=== PATIENT | female | born 1975 | race Caucasian/White ===

== ENCOUNTER 2016-07-03 14:51 | Emergency (ER) | payer OTHER ==
[~2016-07-03] VITALS: Ht 167.6 cm; Wt 72.6 kg
[2016-07-03 14:53] VITALS: TEMP 36.8; Ht 167.6 cm; Wt 72.6 kg
[2016-07-03] MEDS ORDERED: ACETAMINOPHEN 500 MG TAB PO STA (15:10)
[2016-07-03] MEDS ORDERED: B-COTAB18 PO (15:29)
[2016-07-03] MEDS ORDERED: ASCO500C43 PO (15:29)
[2016-07-03] MEDS ORDERED: AZITTAB PO (15:29)
[2016-07-03] MEDS ORDERED: PHEN1MIS16 PO (15:29)
[2016-07-03] MEDS ORDERED: CALC600T9 PO (15:29)
[2016-07-03] MEDS ORDERED: MULT-513 PO (15:29)
[2016-07-03] MEDS ORDERED: SERT-234 PO (15:29)
--- NOTE | 2016-07-03 16:07 | DIAGNOSTIC IMAGING REPORT ---
LUMBAR SPINE 5 VIEWS CLINICAL HISTORY: Fall. Low back pain. FINDINGS: 5 views of the lumbar spine are obtained. No prior studies are available for comparison at the time of dictation. The skeletal structures are well mineralized. There is no radiographic evidence of fracture or malalignment. Vertebral body height and alignment are maintained. The transverse and spinous processes are intact. There is no evidence of spondylolysis. The intervertebral disc spaces are well-maintained. The visualized bony pelvis appears intact. There is a nonobstructed abdominal bowel gas pattern. There is moderate colonic fecal retention. Cholecystectomy clips are identified in the right upper quadrant. IMPRESSION: No acute bony abnormality is seen involving the lumbar spine. Electronically signed by: Francis Chicas M.D. 07/03/2016 4:06 PM Dictated Date/Time: 07/03/2016 4:05 PM
--- NOTE | 2016-07-03 16:08 | DIAGNOSTIC IMAGING REPORT ---
RIGHT WRIST 4 VIEWS CLINICAL HISTORY: Fall with right wrist injury. FINDINGS: 4 views of the right wrist are obtained. No prior studies are available for comparison at the time of dictation. The skeletal structures are well mineralized. No fracture is seen. The joint spaces of the wrist are well-maintained. The overlying soft tissues are within normal limits. IMPRESSION: Unremarkable radiographic assessment of the right wrist. Electronically signed by: Francis Chicas M.D. 07/03/2016 4:07 PM Dictated Date/Time: 07/03/2016 4:06 PM
--- NOTE | 2016-07-03 16:10 | DIAGNOSTIC IMAGING REPORT ---
SACRUM AND COCCYX 3 VIEWS CLINICAL HISTORY: Fall with tailbone pain. FINDINGS: 3 views of the sacrum and coccyx are obtained. No prior studies are available for comparison at the time of dictation. The skeletal structures are well mineralized. There is no radiographic evidence of sacral or coccygeal fracture. Minimal sclerotic degenerative change is noted in the sacroiliac joints. The remainder of the visualized bony pelvis appears intact. IMPRESSION: There is no radiographic evidence of sacral or coccygeal fracture. Electronically signed by: Francis Chicas M.D. 07/03/2016 4:09 PM Dictated Date/Time: 07/03/2016 4:07 PM
[2016-07-03] MEDS ORDERED: NORCO 5/325MG HOME PACK PO ONE (16:30)
[2016-07-03] MEDS ORDERED: HYDR-5688 PO (16:32)
[2016-07-03 16:37] VITALS: BP 138/87; PULSE 72; O2SAT 98
--- NOTE | 2016-07-03 21:08 | EMERGENCY ROOM VISIT NOTE ---
History First contact with patient: 14:57 Chief Complaint: FALL Stated Complaint: FALL, INJURED TAILBONLeandro, L THUMB AND WRIST PAIN History of Present Illness The patient is a 41 year old female who presents to the Emergency Room with complaints of fall that occurred at work earlier today. The patient works at [employer], and she entered into an area where the floor was wet. There was no designation that something was on the floor, and as the patient walked in she began to fall. She was able to gather herself by holding onto the door, but was in a position where she either had to continue through the room, or return back out the way she came. The patient decided to go back out the way she came, but as she turned, her footing gave out, and she fell. She primarily landed injuring her right wrist and buttocks. The patient did take some ibuprofen, but has had worsening pain over the past several hours. 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 She presents to the ER for evaluation. She is right-hand dominant and has not had injury to the wrist or back in the past. Her discomfort is currently rated a 5/10 that worsens with certain range of motion and positions. Review of Systems More than 10 systems were reviewed and otherwise negative with the exception of history of present illness. Past Medical/Surgical History No chronic medical disease Family History No pertinent family history Social History Smoking Status: Never Smoker Housing Status: lives with family Occupation Status: employed Current/Historical Medications Scheduled Ascorbic Acid (Vitamin C 500 mg), 1 TAB PO DAILY Azithromycin (Zithromax Z-Levon), 1 PKT PO UD B-Complex Vitamins (Vitamin B Complex), 1 TAB PO DAILY Calcium Carbonate-Vitamin D (Calcium + D), 1 TAB PO DAILY Multivitamins/Minerals (Mvi With Minerals), 1 TAB PO DAILY Maoumefsuojal-Pnburztjrz-Ycvao (Vicks Dayquil/Nyquil Cold), 2 TABS PO PRN UD Sertraline (Zoloft), 100 MG PO DAILY Scheduled PRN Hydrocodone/Acetaminophen 5MG/325MG ([place] 5MG/325MG), 1-2 TABLET PO Q6 PRN for Pain Allergies Coded Allergies: Sulfa Antibiotics (Verified Allergy, Severe, ANAPHYLAXIS, 07/03/16) Penicillins (Verified Allergy, Unknown, UNKNOWN FROM CHILDHOOD, 07/03/16) Physical Exam Vital Signs Date Time Temp Pulse Resp B/P Pulse Ox O2 Delivery O2 Flow Rate FiO2 07/03/16 16:37 72 16 138/87 98 07/03/16 14:53 36.8 80 18 138/87 94 Room Air Pain Rating (0-10): 6.0 Physical Exam VITALS: Vitals are noted on the nurse's note and reviewed by myself. Vital signs stable. GENERAL: Well-developed, well-nourished, white female, who is in no acute distress and resting comfortably. Patient is cooperative with the examination. HEAD: Normocephalic atraumatic. HEART: Regular rate and rhythm without murmurs gallops or rubs. LUNGS: Clear to auscultation bilaterally without wheezes, rales or rhonchi. No retractions or accessory muscle use. ABDOMEN: Positive normal bowel sounds x 4. Soft, nontender, without masses or organomegaly. No guarding or rebound tenderness. MUSCULOSKELETAL: There is positive tenderness along the distal radius of the right wrist into the base of the right thumb. There is positive snuffbox tenderness. 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 She is able to flex and extend at the wrist. No significant tenderness of the fingers, right elbow, or right shoulder. No appreciated tenderness or injury to the remaining extremities. There is tenderness along the very low lumbar spine into the sacrum and coccyx. No gross deformity or significant paravertebral spasm noted. No saddle paresthesias. Straight leg raise bilateral. NEURO: Patient was alert and oriented to person place and time. CN II through XII grossly intact. Deep tendon reflexes 2+ throughout. Medical Decision & Procedures ER Provider Diagnostic Interpretation: RIGHT WRIST 4 VIEWS CLINICAL HISTORY: Fall with right wrist injury. FINDINGS: 4 views of the right wrist are obtained. No prior studies are available for comparison at the time of dictation. The skeletal structures are well mineralized. No fracture is seen. The joint spaces of the wrist are well-maintained. The overlying soft tissues are within normal limits. IMPRESSION: Unremarkable radiographic assessment of the right wrist. SACRUM AND COCCYX 3 VIEWS CLINICAL HISTORY: Fall with tailbone pain. FINDINGS: 3 views of the sacrum and coccyx are obtained. No prior studies are available for comparison at the time of dictation. The skeletal structures are well mineralized. There is no radiographic evidence of sacral or coccygeal fracture. Minimal sclerotic degenerative change is noted in the sacroiliac joints. The remainder of the visualized bony pelvis appears intact. IMPRESSION: There is no radiographic evidence of sacral or coccygeal fracture. LUMBAR SPINE 5 VIEWS CLINICAL HISTORY: Fall. Low back pain. FINDINGS: 5 views of the lumbar spine are obtained. No prior studies are available for comparison at the time of dictation. The skeletal structures are well mineralized. There is no radiographic evidence of fracture or malalignment. Vertebral body height and alignment are maintained. The transverse and spinous processes are intact. There is no evidence of spondylolysis. The intervertebral disc spaces are well-maintained. The visualized bony pelvis appears intact. There is a nonobstructed abdominal bowel gas pattern. There is moderate colonic fecal retention. Cholecystectomy clips are identified in the right upper quadrant. IMPRESSION: No acute bony abnormality is seen involving the lumbar spine. Medications Administered Medications (Trade) Dose Ordered Sig/Thompson Route Start Time Stop Time Status Last Admin Dose Admin Acetaminophen (Tylenol Tab) 1,000 mg NOW STAT PO 07/03/16 15:10 07/03/16 15:13 DC 07/03/16 15:21 1,000 MG ED Course Physical exam and history were performed. Nursing notes and EMR were reviewed. Patient appears to have suffered a fall at work with injuries primarily to the right wrist and her coccyx/low back. The patient was given Tylenol by mouth here in the department. X-rays were performed. The x-rays do not show evidence of acute fractures or dislocation throughout. I do not concern is the patient does have anatomic snuffbox tenderness. She was placed in a thumb spica splint with neurovascular status remaining intact. The patient will need to follow with orthopedics, preferably from [employer]. The patient will be given a course of Vicodin for pain control. She was invited back to the emergency department with any new, worsening, or concerning symptoms. The chart was completed utilizing [employer] Speech Voice Recognition Software. Grammatical errors, random word insertions, pronoun errors, and incomplete sentences are an occasional consequence of this system due to software limitations, ambient noise, and hardware issues. Any formal questions or concerns about the content, text, or information contained within the body of this dictation should be directly addressed to the provider for clarification. . Medical Decision Differential diagnosis includes, but is not limited to: Sprain, strain, fracture , dislocation, contusion, and others Impression Primary Impression: Fall Additional Impressions: Right wrist injury Injury of low back Departure Information Dispostion Home / Self-Care Condition GOOD Prescriptions Hydrocodone/Acetaminophen 5MG/325MG ([place] 5MG/325MG) Tab 1-2 TABLET PO Q6 Y for Pain, #15 TAB For Initial Treatment Prov: Primo Pastor PA-C 07/03/16 Referrals Frederic Calvillo MD Forms HOME CARE DOCUMENTATION FORM, Work Instructions, Additional Instructions: Patient was seen and evaluated today in the emergency department fo medical care. May return to work, however may not use the right arm unti cleared by orthopedics. IMPORTANT VISIT INFORMATION Patient Instructions [facility] Additional Instructions You were seen and evaluated today on an emergency basis only. This is not a substitute for, or an effort to provide, complete comprehensive medical care. It is not possible to recognize and treat all injuries or illnesses in a single emergency department visit. For this reason it is recommended that you followup with Workers compensation orthopedics this week for ongoing care and evaluation. Your employer should provide you resources to help make this appointment. We have provided to the information for the local orthopedic hand specialist, Dr. Calvillo, for convenience. For baseline pain relief you may alternate ibuprofen and acetaminophen every 4 hours for pain control. Take 600 mg ibuprofen (Advil) and then 4 hours later take 1000 mg acetaminophen (Tylenol). Do not take more than 3000 mg acetaminophen in a single day. [place] (hydrocodone/acetaminophen) 5/325 mg ONE or TWO every 6 hours as needed for worsening breakthrough pain. Do not drink or drive on [place]. This medication will likely make you tired. Do not take [place] and Tylenol at the same time as both contain acetaminophen. [place] may cause constipation. You may wish to take an [id number]-pro-hzlhvfw stool softener like Colace if this occurs. Wear your wrist brace until otherwise instructed by orthopedics. You may remove this for showering. Apply ice 20 minutes on and 20 minutes off for additional relief of symptoms. You are welcome to return to the emergency department anytime with new, worsening, or concerning symptoms. Work Instructions Additional Work Instructions: Patient was seen and evaluated today in the emergency department for medical care. May return to work, however may not use the right arm until cleared by orthopedics. Problem Qualifiers
== END 2016-07-03 16:50 | disposition home or self-care (01) ==
LOC: C.EDB 14:52 → C.EDD 16:50
DX: S69.91XA Unspecified injury of right wrist, hand and finger(s), initial encounter (principal); S39.92XA Unspecified injury of lower back, initial encounter; W01.0XXA Fall on same level from slipping, tripping and stumbling without subsequent striking against object, initial encounter; Y92.149 Unspecified place in prison as the place of occurrence of the external cause; Y99.0 Civilian activity done for income or pay